=== PATIENT | female | born 1980 | race Caucasian/White ===

== ENCOUNTER → 2017-11-14 | Outpatient (CLI) | payer BC, OTHER ==
[~2017-11-14] MED LIST: PREN-127 PO
--- NOTE | 2017-11-14 11:53 | RADIOLOGY IMAGING REPORT ---
FAC[place] [facility] [place] NAME: FLOIRDA PERALTA : [id number] MR: [id number] V: [id number] EXAM DATE: ORDERING PHYSICIAN: LEROY CISNEROS TECHNOLOGIST: Sariah Ward PROCEDURE:BILATERAL DIGITAL SCREENING MAMMOGRAM WITH CAD ASSISTED INTERPRETATION & 3D TOMOSYNTHESIS COMPARISON:Prior mammograms 04/12/10. INDICATIONS:SCREENING FINDINGS: Mildly dense fibroglandular tissue is seen throughout the breasts. There is asymmetry in the deposition of fibroglandular with more fibroglandular seen in the upper outer quadrant of the Left breast relative to the Right. Some of the findings were seen on the prior mammogram. There is no demonstration of malignant appearing mass, malignant appearing calcifications or other secondary sign of malignancy in either breast. DIAGNOSTIC CATEGORY 2--BENIGN FINDING. RECOMMENDATIONS: ROUTINE MAMMOGRAM AND CLINICAL EVALUATION. IMPRESSION: BIRADS 2: Benign finding No significant abnormality is seen. Dictated by: Nati Juárez M.D. on 11/14/2017 at 9:58 Transcribed by: PIPPA on 11/14/2017 at 10:19 Approved by: Nati Juárez M.D. on 11/14/2017 at 11:53 [facility]
== END ==
LOC: MAMO 01:12
PROVIDERS: ATTEND Obstetrics & Gynecology
DX: Z12.31 Encounter for screening mammogram for malignant neoplasm of breast (principal)
CPT/HCPCS: 77063; 77067